=== PATIENT | female | born 1950 | race Caucasian/White ===

== ENCOUNTER 2023-08-15 09:08 | Outpatient (CLI) | payer MEDICARE, BC, SELFPAY ==
--- NOTE | ~2023-08-15 | XR_ITS ---
AP view of the pelvis and AP and lateral views of the left hip Clinical history: Pain, trochanteric bursitis Findings: No acute fracture or dislocation is seen. Osseous alignment is anatomic. Bilateral hip and SI joint spaces are preserved. Lower lumbar spinal fusion noted. Soft tissues are unremarkable. Impression: No acute abnormality is seen. Reviewed, dictated and finalized at location . [employer]ACHINE OPERATOR Impression: No acute abnormality is seen.
== END 2023-08-15 09:09 | disposition home or self-care (01) ==
LOC: ANHIMG 09:17
PROVIDERS: PCP Nurse Practitioner Family; Visit Provider Physician Assistant Surgical
DX: M70.62 Trochanteric bursitis, left hip (principal)
CPT/HCPCS: 73502

== ENCOUNTER 2024-02-11 13:44 | Outpatient (CLI) | payer MEDICARE, BC, SELFPAY ==
--- NOTE | ~2024-02-11 | XR_ITS ---
EXAM: XR knee RT min 4V, XR knee LT min 4V DATE: 02/11/2024 14:08 HISTORY: M17.11 - Unilateral primary osteoarthritis, right knee . COMPARISON: X-ray left knee,, images only x-ray bilateral knees 12/29/2022, images only. FINDINGS: Decreased mineralization. No fracture or dislocation. No lytic or blastic lesion. Mild tavon ateral medial and lateral joint space narrowing. Mild tricompartmental osteophytosis. Quadriceps enth esopathy on the right. No erosion or periosteal change. Soft tissues within normal limits. 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 Reviewed, dictated and finalized at location K. 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
== END 2024-02-11 13:45 | disposition home or self-care (01) ==
PROVIDERS: PCP Nurse Practitioner Family; Visit Provider Orthopaedic Surgery
DX: M17.0 Bilateral primary osteoarthritis of knee (principal)
CPT/HCPCS: 73564